=== PATIENT | female | born 1980 | race Caucasian/White ===

== ENCOUNTER → 2020-06-10 14:15 | Outpatient (CLI) | payer OTHER, SELFPAY | PROVIDERS: PCP Internal Medicine Adolescent Medicine; Visit Provider Internal Medicine Adolescent Medicine | DX: Z03.818 Encounter for observation for suspected exposure to other biological agents ruled out (principal) | CPT/HCPCS: U0003 ==

== ENCOUNTER → 2020-07-01 14:00 | Outpatient (CLI) | payer OTHER, SELFPAY | PROVIDERS: PCP Internal Medicine Adolescent Medicine; Visit Provider Internal Medicine Adolescent Medicine | DX: Z03.818 Encounter for observation for suspected exposure to other biological agents ruled out (principal) | CPT/HCPCS: U0003 ==

== ENCOUNTER → 2021-10-29 07:13 | Outpatient (CLI) | payer OTHER, SELFPAY ==
[2021-10-29 18:18] LABS: Coronavirus 19, PCR Not Detected (NotDetected); Influenza A, PCR Not Detected (NotDetected); Influenza B, PCR Not Detected (NotDetected)
== END ==
PROVIDERS: PCP Internal Medicine Adolescent Medicine; Visit Provider Internal Medicine Adolescent Medicine
DX: Z20.822 Contact with and (suspected) exposure to COVID-19 (principal)
CPT/HCPCS: C9803; U0003; U0005

== ENCOUNTER 2025-08-16 09:38 | Outpatient (CLI) | payer BC, SELFPAY ==
--- OUTSIDE RECORDS SUMMARY | 2025-07-06 05:00 | XMS_ITS | Encounter Summary ---
[facility] Address [address] [place] [address] Care Team Providers Care Plate Embosser Name Role Phone Jael Flores APRN Primary Care Provid er Encounter Details Date Type Department Care Team (Late st Contact Info) Description 07/06/2025 5:00 AM EST Outside Facility Service [facility] UROLOGY [address] [place] [address] Hernan Britton MD 1760 [facility] [address] [place] [address] Social History Tobacco Use Types Packs/Day Years Used Date Smoking Tobacco: Former Cigarettes 0.5 15 Q uit: 2018 Passive Smoke Exposure: Past Smokeless Tobacco: Never Alcohol Use Standard Drinks/Week Comments Yes 6 (1 standard drink = 0.6 oz pur e alcohol) socially AUDIT-C Answer Date Recorded Q1: How often do you have a drink containing alcohol? Never 01/04/2025 Q2: How many drinks containi ng alcohol do you have on a typical day when you are drinking? Patient does not drink Q3: How often do you have si x or more drinks on one occasion? Never 01/04/2025 Abuse Screen Answer Date Recorded Feels Unsafe at Home or Work/School no 01/04/2025 Feels Threatened by Someone no 02/2025 Does Anyone Try to Keep You From Having Contact with Others or Doing Things Outside Your Home? no 01/04/2025 Physical Signs of Abuse Present no 01/04/2025 Housing Stability Answer Date Recorded Current Living Arrangements home 02/2025 Potentially Unsafe Housing Conditions Not on tian e 01/04/2025 Disabilities Answer Date Recorded Difficulty Concentrating, Remembering or Making Decisions no 01/04/2025 Difficulty Managing Errands Independently no 01/04/2025 Education Answer Date Recorded Help with school or training? Not on file Preferred Language Venezuelan 01/03/2025 Comments No Sex and Gender Information Value Date Recorded Sex Assigned at Not on file Legal Sex Female 11:38 AM EDT Gender Identity Not on file Sexual Orientation Not on file documented as of this encounter Plan of Treatment Not on file documented as of this encounter Visit Diagnoses Not on filedocumented in this encounter Care Teams Plate Embosser Relationship Specialty Start Date End Date Jael Flores APRN 1210 [facility] [address] [place] [id number] PCP - General Family Medicine 04/10/21 documented as of this encounter
--- NOTE | 2025-08-16 09:41 | US_ITS ---
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 The right kidney measures 10.4 cm in length. The left kidney measures 8.7 cm in length. The kidneys are normal in size. Right kidney probably has a duplicated collecting system, although CT could better confirm if clinically relevant. No evidence of obstruction. IMPRESSION: Normal renal size with no evidence of obstruction. 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 CT could better confirm if clinically relevant. Reviewed, Interpreted and Dictated by Jana Peres MD Transcribed by Sanjana Lang Authenticated and . [facility]
--- NOTE | 2025-08-16 09:42 | XR_ITS ---
FINAL REPORT CLINICAL HISTORY: PAIN..no trauma COMPARISON: None FINDINGS: Three views of the right shoulder show no evidence of acute displaced fracture or dislocation of the visualized bony architecture. The joint spaces appear normal. IMPRESSION: Unremarkable exam. Reviewed, Interpreted and Dictated by Jana Peres MD Transcribed by Sanjana Lang Authenticated and [facility]
--- NOTE | 2025-08-16 09:42 | XR_ITS ---
FINAL REPORT CLINICAL HISTORY: PAIN..no trauma COMPARISON: None FINDINGS: Three views of the left shoulder show no evidence of acute displaced fracture or dislocation of the visualized bony architecture. The joint spaces appear normal. IMPRESSION: Unremarkable exam. Reviewed, Interpreted and Dictated by Jana Peres MD Transcribed by Sanjana Lang Authenticated and [facility]
--- OUTSIDE RECORDS SUMMARY | 2025-08-16 11:15 | XMS_ITS | Clinical Summary ---
Author Organization [facility] Address [address] [place] [address] Care Team Providers Care Equipment Operat0R Name Role Phone Jael Flores APRN Primary Care Provid er Allergies Active Allergy Reactions Criticality Noted Date Comments Contrast Dye (Echo Or Unknown Ct/Mr) Rash Low 04/10/2021 Nifedipine Rash Low 04/10/2021 Medications metoprolol succinate XL (TOPROL-XL) 50 MG 24 hr tablet Take 1 tablet by mouth Daily. Active amitriptyline (ELAVIL) 25 MG tablet 4 Active Tirzepatide-El ght Management (Zepbound) 2.5 MG/0.5ML solution Inject 0.5 mL under the skin into the appropriate area as directed. Every other week ; last dose on 12/19/24 in preparation for surgery on 01/04/25 Active docusate sodium 100 MG capsule Take 1 capsule by mouth 2 (Two) Times a Day. 100 capsule 2 5 Active valACYclovir (VALTREX) 1000 MG tablet TAKE TWO TABLETS BY MOUTH EVERY TWELVE HOURS FOR 2 doses NEEDED FOR FEVER blisters 5 Active cyclobenzaprine (FLEXERIL) 10 MG tablet TAKE ONE TABLET BY MOUTH TWICE DAILY NEEDED MAY CAUSE DROWSINESS 5 Active Active Problems Problem Noted Date Diagnosed Date Lower urinary tract symptoms (LUTS) 01/20/2025 Primary stress urinary incontinence 01/18/2025 Postoperative visit 01/18/2025 Fibroid uterus 12/31/2024 Uterine leiomyoma 11/17/2024 History of endometrial ablation 11/17/2024 ANDRIY (stress urinary incontinence, female) 2024 Abnormal uterine bleeding (AUB) 11/17/2024 Encounters Date Type Department Care Team Description 07/07/2025 Telephone [facility] UROLOGY [address] [place] [address] Hernan Britton MD 07/06/2025 5:00 AM EST Outside Facility Service [facility] UROLOGY [address] [place] [address] Hernan Britton MD 07/06/2025 Documentation [facility] UR[facility]Y [address] [facility] [address] [place] [address] Hernan Britton MD 06/14/2025 10:00 AM EDT Office Visit [facility] UROLOGY [address] [place] [address] Hernan Britton MD ANDRIY (stress urinary incontinence, female) (Primary Dx) 06/14/2025 Travel from Last 3 Months Family History Medical History Relation Name Comments Anuerysm Father Dad Heart disease Father Dad Angiosarcoma Hypertension Father Dad Skin cancer Father Dad Colon cancer Maternal Grandmother Mini Relation Name Status Comments Father Dad Maternal Grandmother Mini Social History Tobacco Use Types Packs/Day Years Used Date Smoking Tobacco: Former Cigarettes 0.5 15 Q uit: 2018 Passive Smoke Exposure: Past Smokeless Tobacco: Never Tobacco Cessation:Counseling Given: No Alcohol Use Standard Drinks/Week Comments Yes 6 [...] or training? Not on file Preferred Language Albanian 01/03/2025 Comments No Sex and Gender Information Value Date Recorded Sex Assigned at Not on file Legal Sex Female 11:38 AM EDT Gender Identity Not on file Sexual Orientation Not on file Last Filed Vital Signs Vital Sign Reading Time Taken Comments Blood Pressure 128/80 02/15/2025 10:03 AM EDT Pulse 88 01/05/2025 3:45 AM EDT Temperature 36.7 C (98.1 F) 01/05/2025 3:45 AM EDT Respiratory Rate 16 01/05/2025 3:45 AM EDT Oxygen Saturation 94% 01/05/2025 3:45 AM EDT Inhaled Oxygen Concentration - - Weight 68 kg (150 lb) 06/14/2025 10:14 AM EDT Height 162.6 cm (5' 4.02 ) 06/14/2025 10:14 AM E DT Body Mass Index 25.73 06/14/2025 10:14 AM EDT Plan of Treatment Health Maintenance Due Date Last Done Comments TDAP/TD VACCINES (1 - Tdap) 1998 MAMMOGRAM 2019 ANNUAL PHYSICAL 04/10/2021 HEPATITIS C SCREENING 04/10/2021 COLOGUARD 2024 COLON CANCER SCREENING 5 YEA R SIGMOIDOSCOPY 2024 COLONOSCOPY 2024 COLORECTAL CANCER SCREENING 2024 CT COLONOGRAPHY 2024 FECAL OCCULT BLOOD TEST 2024 FIT Testing (1 year) 2024 Annual Gynecologic Pelvic an d Breast Exam 07/07/2025 07/06/2024 INFLUENZA VACCINE Completed 07/04/2025, 06/21/2024, 08/10/2023 Pneumococcal Vaccine 0-49 Aged Out No longer eligible based on patient's age to complete this topic Medical Devices Implanted Type Area Aluminum Boat Inspector Device Identifier Shelf Expiration Date Model / Serial / Lot Dev Contrl Tiss Stratafix Spiral Pds Plus Sz0 Ct/2 30cm Nupur - [id number] Implanted:Qty: 1 on 01/04/2025 by Tia Felipe MD at [facility] Implant Uterus [employer] DIV OF J AND J 12/28/2025 [id number] / / [id number] Seal Hemo Surg Jazmine/Ah Abs/Pwdr 1gm - [id number] Implanted:Qty: 1 on 01/04/2025 by Tia Felipe MD at [facility] Implant Uterus [employer] 01/25/2029 [id number] / / [id number] Insurance [facility] PPO Advance Directives * CPR (Attempt to Resuscitate) (Latest Code Status on File) Date Activated Date Inactivated Comments 01/04/2025 12:40 PM 01/05/2025 2:18 PM Question Answer Comments Code Status (Patient has no pulse and is not breathing): CPR (Attempt to Resuscitate) Medical Interventions (Patie nt has pulse or is breathing): Full Support Level Of Support Discussed With: Patient * CPR (Attempt to Resuscitate) Date Activated Date Inactivated Comments 01/04/2025 12:11 PM 01/04/2025 12:40 PM Question Answer Comments Code Status (Patient has no pulse and is not breathing): CPR (Attempt to Resuscitate) Medical Interventions (Patie nt has pulse or is breathing): Full Support Level Of Support Discussed With: Patient Care Teams Equipment Operat0R Relationship Specialty Start Date End Date Jael Flores APRN [address] [place] [address] [place] [address] PCP - General Family Medicine 04/10/21
--- OUTSIDE RECORDS SUMMARY | 2025-08-16 11:15 | XMS_ITS | Encounter Summary ---
[facility] Address [address] [place] [address] Care Team Providers Care Curb Setter Helper Name Role Phone Jael Flores APRN Primary Care Provid er Encounter Details Date Type Department Care Team (Late st Contact Info) Description 07/06/2025 Documentation [facility] UROLOGY [address] [place] [address] Hernan Britton MD 1760 [facility] [address] [place] [address] Social History Tobacco Use Types Packs/Day Years [...] or training? Not on file Preferred Language Grenadian 01/03/2025 Comments No Sex and Gender Information Value Date Recorded Sex Assigned at Not on file Legal Sex Female 11:38 AM EDT Gender Identity Not on file Sexual Orientation Not on file documented as of this encounter Progress Notes * Hernan Britton MD - 07/06/2025 11:26 AM EST [facility] [address] [facility], [address] [place] [address] OPERATIVE REPORT Patient Name: Anju Durand Date of : 1980 Patient Date of Surgery: 07/06/25 Indications: 45 yo F with bothersome and progressive stress urinary incontinence despite conservative measures presents for urethral bulking injections after discussion of risks, benefits, and alternatives. Pre-op Diagnosis: Intrinsic sphincter deficiency Stress urinary incontinence Post-op Diagnosis: Intrinsic sphincter deficiency Stress urinary incontinence Procedure Performed: Cystoscopy, Urethral Bulking Injections (Bulkamid) Procedure/CPT?? Codes: 82323 - Bulking Injection L8606 x 2 (2 mL, 2 vials Hydrogel used) Staff: Hernan Britton MD Anesthesia: MAC Estimated Blood Loss: Minimal Implants: Bulkamid Hydrogel Specimen: None Drains: None Findings: Uncomplicated urethral bulking, 2 mL hydrogel (2 vials used) with good urethral mucosa apposition/coaptation noted Complications: None Description of Procedure: The patient was identified in the preoperative holding area where informed consent was reviewed andsigned. The patient was transported the operating room per anesthesia and placed supine on the operating table. Monitored anesthesia care was performed and patient was adequately anesthetized. The patient was then placed in the dorsal lithotomy position where genitals were prepped and draped in theusual sterile fashion. A brief timeout was performed identifying the correct patient procedure and laterality. Perioperative antibiotics were administered. All pressure points were padded. The Bulkamid Needle was then placed ?? of the way into the needle channel of the rotatable sheath and the entire Bulkamid system was then advanced into the urethra until the bladder is visualised andinspected. The Bulkamid needle was then advanced into the needle channel on the rotatable sheath until the tip of the sheath is adjacent to the bladder neck. The sheath was then rotated to the 7 o???clock position. The needed was then extend into the bladder until the 2 cm farheen on the needle is visible. The Bulkamid system was then retracted until the tipof the needle was resting on the bladder neck. The needle was then retracted into the sheath and approximately 1.5cm from the bladder neck the Bulkamid system was pressed parallel against the urethral wall and the needle is then advanced into the submucosal tissue ensuring that the bevel of the needle was facing towards the lumen. The needle was advanced approximately 0.5 cm, and the Bulkamid hydrogel was then injected until the Bulkamid cushion was visible and reached the midline of the urethral lumen. The needle was then retracted back into the rotatable sheath, and rotated to the next injection site. Subsequent injections were preformed at 5 o???clock, 2 o???clock and 10 o???clock all along the same plane as the original injection until all (4) cushions met at the midline of the urethral lumen.2mls (2 vials) total of Bulkamid Hydrogel was used. Approximately 300cc of fluid was left in the bladder and upon completion. The procedure was well tolerated and EBL was minimal. The patient was awoken from general anesthesia and transported to the PACU in stable condition. Disposition/Follow Up: 3-4 weeks for post op f/u in clinic Hernan Britton MD Date: 07/06/2025 Time: 11:26 EST documented in this encounter Plan of Treatment Not on file documented as of this encounter Visit Diagnoses Not on filedocumented in this encounter Care Teams Curb Setter Helper Relationship Specialty Start Date End Date Jael Flores APRN 1210 [facility] [address] [facility] [place] [address] PCP - General Family Medicine 04/10/21 documented as of this encounter
--- OUTSIDE RECORDS SUMMARY | 2025-08-16 11:15 | XMS_ITS | Encounter Summary ---
Author Organization [facility] Address [address] [place] [address] Care Team Providers Care Podiatric Physician Name Role Phone Jael Flores APRN Primary Care Provid er Encounter Details Date Type Department Care Team (Late st Contact Info) Description 07/07/2025 Telephone [facility] UROLOGY [address] [place] [address] Hernan Britton MD 1760 [facility] [address] [place] [address] Social History Tobacco Use Types Packs/Day Years [...] or training? Not on file Preferred Language Bulgarian 01/03/2025 Comments No Sex and Gender Information Value Date Recorded Sex Assigned at Not on file Legal Sex Female 11:38 AM EDT Gender Identity Not on file Sexual Orientation Not on file documented as of this encounter Miscellaneous Notes * Telephone Encounter - Elizabeth Andre - 07/10/2025 8:52 AM EST Spoke with pt to schedule. * Telephone Encounter - Elizabeth Andre - 07/07/2025 9:40 AM EST Lvm for patient to contact office to schedule. * Telephone Encounter - Elizabeth Andre - 07/07/2025 9:40 AM EST ----- Message from Hernan Britton sent at 07/06/2025 11:27 AM EST ----- 3-4 week post-op check documented in this encounter Plan of Treatment Not on file documented as of this encounter Visit Diagnoses Not on filedocumented in this encounter Care Teams Podiatric Physician Relationship Specialty Start Date End Date Jael Flores APRN [address] [facility] [address] [place] [address] PCP - General Family Medicine 04/10/21 documented as of this encounter
--- OUTSIDE RECORDS SUMMARY | 2025-08-16 11:15 | XMS_ITS | Clinical Summary ---
Author Organization Healthcare Address [address] [place] [address] Care Team Providers Care Relay Tester Helper Name Role Phone Jael Flores GRINDER MACHINE SETTER Primary Care Provider +1- [phone] Allergies Active Allergy Reactions Criticality Noted Date Comments Iv Contrast Rash Low 11/04/2024 Nifedipine Rash Low 11/04/2024 Active Problems Problem Noted Date Diagnosed Date Intramural leiomyoma of uterus 11/08/2024 Family History Medical History Relation Name Comments ANGIOSARCO Father Heart disease Father Hypertension Father Hyperlipidemia Mother Hypertension Mother Relation Name Status Comments Father Mother Social History Tobacco Use Types Packs/Day Years Used Date Smoking Tobacco: Never Smokeless Tobacco: Never Tobacco Cessation:Counseling Given: Not Answered Alcohol Use Standard Drinks/Week Comments Not Currently 0 (1 standard drink = 0.6 oz pur e alcohol) Comments No Sex and Gender Information Value Date Recorded Sex Assigned at Not on file Legal Sex Female 6:48 PM EDT Gender Identity Not on file Sexual Orientation Not on file Last Filed Vital Signs Vital Sign Reading Time Taken Comments Blood Pressure 106/75 11/04/2024 9:21 AM EST Pulse 77 11/04/2024 9:21 AM EST Temperature 36.6 C (97.9 F) 11/04/2024 9:21 AM EST Respiratory Rate 16 11/04/2024 9:21 AM EST Oxygen Saturation 98% 11/04/2024 9:21 AM EST Inhaled Oxygen Concentration - - Weight 67.2 kg (148 lb 2.4 oz) 11/04/2024 9:21 A M EST Height 162.6 cm (5' 4 ) 11/04/2024 9:21 AM EST Body Mass Index 25.43 11/04/2024 9:21 AM EST Plan of Treatment Health Maintenance Due Date Last Done Comments [facility]-Depression Screening 1980 [facility]-HIV Screening 1980 [facility]-Hepatitis C Screening 1980 [facility]-/Child/Adol SDOH Screenings 1980 [facility]- SDOH Screenings 1997 [facility]-Adult SDOH Screenings 1997 [facility]-DTaP,Tdap,and Td Vaccine s (1 - Tdap) 1998 [facility]-Hepatitis B Vaccines (1 of 3 - 19+ 3-dose series) 1998 [facility]-HPV/Cotest 2009 CT Colonography 2024 Colonoscopy 2024 FIT-DNA 2024 FIT 2024 FOBT 2024 Sigmoidoscopy 2024 [facility]-Colorectal Cancer Screening 2024 PDI-UHKNI-30 Vaccine ( - season) 2025 [facility]-Influenza Vaccine (#1) 05/01/202506/21, 08/10/2023 [facility]-Cervical Cancer Screening 07/06/2027 [facility]-Pap Smear 07/06/2027 07/06/2024 [facility]-Zoster Vaccines (1 of 2) 2029 [facility]-Obesity Intervention Completed 11/04/2024 HPV Vaccines (No Doses Required) Completed [facility]-HIB Vaccines Aged Out No longer e ligible based on patient's age to complete this topic [facility]-Hepatitis A Vaccines Aged Out No longer eligible based on patient's age to complete this topic [facility]-IPV Vaccines Aged Out No longer e ligible based on patient's age to complete this topic [facility]-Pneumococcal Vaccine: Pediatrics (0 to 5 Years) and At-Risk Patients (6 to 49 Years) Aged Out No longer eligible b ased on patient's age to complete this topic [facility]-Rotavirus Vaccines Aged Out No lo nger eligible based on patient's age to complete this topic Insurance Care Teams Relay Tester Helper Relationship Specialty Start Date End Date Jael Flores APRN 12[address] [facility] [address] [place] [address] PCP - General 11/04/24
--- OUTSIDE RECORDS SUMMARY | 2025-08-16 11:15 | XMS_ITS | Encounter Summary ---
Author Organization Healthcare Address [address] [place] [id number] Care Team Providers Care Copy Technician Name Role Phone Jael Flores CORI Primary Care Provider +1- [phone] Reason for Referral * Consultation (Routine) - Authorized Specialty Diagnoses / Procedures Referred By Beatriz t Referred To Contact Obstetrics and Gynecology Diagnoses Enlarged uterus Uterine leiomyoma, unspecified location ANDRIY (stress urinary incontinence, female) Lexi Maldonado APRN fax: Carlos Alberto Marques MD [address] [address] Phone: tel: fax: Referral ID Status Reason Start Date Expiration Date Visits Requested Visits Authorized [id number] Authorized Specialty Services Required 10/20/2024 04/21/2026 1 1 Encounter Details Date Type Department Care Team (Late st Contact Info) Description 10/20/2024 Community [facility] [address] [place] [address] Lexi Maldonado APRN [address] Enlarged uterus (Primary Dx); Uterine leiomyoma, unspecified location; ANDRIY (stress urinary incontinence, female) Social History Tobacco Use Types Packs/Day Years Used Date Smoking Tobacco: Never Assessed Comments Unknown Sex and Gender Information Value Date Recorded Sex Assigned at Not on file Legal Sex Female 6:48 PM EDT Gender Identity Not on file Sexual Orientation Not on file documented as of this encounter Plan of Treatment Scheduled Referrals Name Type Priority Associated Diagnoses Order Schedule Ambulatory referral to Urogynecology Outpatient Referral Routine Enlarged uterus Uterine leiomyoma, unspecified location ANDRIY (stress urinary incontinence, female) Expected: 10/20/2024 (Approximate), Expires: 04/19/2026 documented as of this encounter Visit Diagnoses Diagnosis Enlarged uterus- Primary Hypertrophy of uterus Uterine leiomyoma, unspecified location ANDRIY (stress urinary incontinence, female) documented in this encounter Care Teams Copy Technician Relationship Specialty Start Date End Date Jael Flores APRN [facility] [address] [address] PCP - General 11/04/24 documented as of this encounter
== END 2025-08-16 23:59 | disposition home or self-care (01) ==
LOC: RAD 09:38
PROVIDERS: PCP Internal Medicine Adolescent Medicine; Visit Provider Nurse Practitioner Family
DX: N18.2 Chronic kidney disease, stage 2 (mild) (principal); Q62.5 Duplication of ureter; M25.511 Pain in right shoulder; M25.512 Pain in left shoulder; R93.421 Abnormal radiologic findings on diagnostic imaging of right kidney
CPT/HCPCS: 73030; 76770